=== PATIENT | male | born 1945 | race Caucasian/White ===

== ENCOUNTER 2016-12-19 19:22 | Inpatient (IN) | payer BC, MEDICARE ==
[~2016-12-19] VITALS: Ht 170.2 cm; Wt 63.5 kg
[2016-12-19] MEDS ORDERED: MORPHINE SULFATE 4 MG/ML CPJ (NOT FOR IM USE) IV STA (20:14)
[2016-12-19] MEDS ORDERED: ONDANSETRON HCL 4MG/2ML VIAL IV STA (20:14)
[2016-12-19 20:41] LABS: CHLORIDE 108 mEq/L (98-107)
[2016-12-19 20:43] LABS: BASOPHILS % 0.4 % (0.0-2.0); EOSINOPHILS % 2.6 % (0.0-5.0); HEMATOCRIT. 46.6 % (42.0-52.0); HEMOGLOBIN. 15.9 g/dL (14.0-18.0); LYMPHOCYTES % 18.4 % (20.0-50.0); MEAN CORPUSCULAR HEMOGLOBIN 31.7 pg (28.0-32.0); MEAN CORPUSCULAR VOLUME 92.8 fL (80.0-94.0); MEAN PLATELET VOLUME 9.8 fl (7.4-10.4); MONOCYTES % 9.8 % (2.0-8.0); NEUTROPHILS % 68.8 % (40.0-76.0); PLATELET 232 x1000/uL (130-400); RED BLOOD CELL COUNT 5.02 mill/uL (4.7-6.1); RED CELL DISTRIBUTION WIDTH 14.2 % (11.6-14.6)
[2016-12-19 20:45] LABS: PARTIAL THROMBOPLASTIN TIME 28.1 sec (23.4-31.0); PROTHROMBIN TIME 10.8 sec (9.4-11.6)
[2016-12-19 20:46] LABS: CARBON DIOXIDE 24 mEq/L (21-32)
[2016-12-19] MEDS ORDERED: SODIUM CHLORIDE 0.9% 1,000 ML IV ONE (20:47)
[2016-12-19] MEDS ORDERED: HYDROMORPHONE HCL/PF 2MG/ML CPJ IV ONE (22:15)
[2016-12-19] MEDS ORDERED: GUAIFENESIN 200MG/10ML SUGAR FREE UDC PO PRN (23:00)
[2016-12-19] MEDS ORDERED: DIPHENHYDRAMINE 50MG/ML VIAL IV PRN (23:00)
[2016-12-19] MEDS ORDERED: IPRATROPIUM/ALBUTEROL 0.5-3(2.5)MG/3ML NEB INH PRN (23:00)
[2016-12-19] MEDS ORDERED: LORAZEPAM 2MG/ML CPJ IV PRN (23:00)
[2016-12-19] MEDS ORDERED: ZOLPIDEM TARTRATE 5MG TABLET PO PRN (23:00)
[2016-12-19] MEDS ORDERED: NA PHOS,M-B/NA PHOS,DI-BA ENEMA 118ML PR PRN (23:00)
[2016-12-19] MEDS ORDERED: DOCUSATE SODIUM 100MG CAPSULE PO PRN (23:00)
[2016-12-19] MEDS ORDERED: MAGNESIUM/ALUMINUM HYDROXIDE/SIMETHICONE 30ML UDC PO PRN (23:00)
[2016-12-19] MEDS ORDERED: ACETAMINOPHEN 325MG TABLET PO PRN (23:00)
[2016-12-19] MEDS ORDERED: CLONIDINE 0.1MG TABLET PO PRN (23:00)
[2016-12-19] MEDS ORDERED: ONDANSETRON HCL 4MG/2ML VIAL IV PRN (23:00)
[2016-12-20 00:30] VITALS: BP 163/66
[2016-12-20] MEDS: HYDROMORPHONE HCL/PF 2MG/ML CPJ IV PRN ×5 (00:54→23:18)
[2016-12-20] MEDS: DEXT 5%/0.45% NACL 1000ML 1,000 ML IV SCH ×2 (01:12→12:05)
[2016-12-20 04:00] VITALS: BP 121/62
[2016-12-20 08:00] VITALS: BP 113/54
[2016-12-20] MEDS: ENOXAPARIN 40MG/0.4ML SYR SUBCUT SCH (08:50)
[2016-12-20] MEDS: METOPROLOL TARTRATE 25MG TABLET PO SCH ×2 (08:50→23:16)
[2016-12-20] MEDS: FAMOTIDINE 20MG/2ML VIAL IV SCH ×2 (08:50→23:14)
[2016-12-20 08:59] LABS: *AMPHETAMINES SCREEN URINE NEGATIVE (NEGATIVE); *BARBITURATES SCREEN URINE NEGATIVE (NEGATIVE); *BENZODIAZEPINES SCREEN URINE NEGATIVE (NEGATIVE); *COCAINE SCREEN URINE NEGATIVE (NEGATIVE); CANNABINOID URINE SCREEN NEGATIVE (NEGATIVE); METHADONE URINE SCREEN NEGATIVE (NEGATIVE); OPIATES URINE SCREEN PRESUMTIVE POSITIVE (NEGATIVE); PHENCYCLIDINE URINE SCREEN NEGATIVE (NEGATIVE)
[2016-12-20 12:00] VITALS: BP 122/58
[2016-12-20 20:00] VITALS: BP 128/72
[2016-12-21] VITALS: BP 136/56
[2016-12-21] MEDS: DEXT 5%/0.45% NACL 1000ML 1,000 ML IV SCH (01:43)
[2016-12-21 04:00] VITALS: BP 136/56
[2016-12-21] MEDS: HYDROMORPHONE HCL/PF 2MG/ML CPJ IV PRN ×4 (07:22→22:15)
[2016-12-21 08:00] VITALS: BP 140/72
[2016-12-21] MEDS: METOPROLOL TARTRATE 25MG TABLET PO SCH ×3 (08:38→22:07)
[2016-12-21] MEDS: ENOXAPARIN 40MG/0.4ML SYR SUBCUT SCH (08:55)
[2016-12-21] MEDS: FAMOTIDINE 20MG/2ML VIAL IV SCH ×2 (09:02→22:06)
[2016-12-21] MEDS ORDERED: VANCOMYCIN HCL 500 MG/VIAL ONE ×2 (11:43→14:07)
[2016-12-21] MEDS ORDERED: BACITRACIN ZINC 15GM TUBE TOP ONE (11:43)
[2016-12-21 12:00] VITALS: BP 135/63
[2016-12-21] MEDS ORDERED: MIDAZOLAM HCL 2 MG/2 ML VIAL ONE (13:32)
[2016-12-21] MEDS ORDERED: FENTANYL CITRATE/PF 50MCG/ML 2ML VIAL ONE (13:34)
[2016-12-21] MEDS ORDERED: PROPOFOL 200MG/20ML VIAL IV ONE (13:35)
[2016-12-21] MEDS ORDERED: LIDOCAINE HCL 1% 20ML VIAL (Pyxis) INJ ONE (13:35)
[2016-12-21] MEDS ORDERED: ROCURONIUM BROMIDE 10MG/ML VIAL 5ML IV ONE (13:36)
[2016-12-21] MEDS ORDERED: CEFAZOLIN SODIUM 1000MG/VIAL ONE (13:52)
[2016-12-21] MEDS ORDERED: SODIUM CHLORIDE 0.9% 1,000 ML IV SCH (14:04)
[2016-12-21] MEDS ORDERED: HYDROMORPHONE HCL/PF 2MG/ML CPJ IV PRN (14:15)
[2016-12-21] MEDS ORDERED: ONDANSETRON HCL 4MG/2ML VIAL IV PRN ×2 (14:15→14:45)
[2016-12-21] MEDS ORDERED: ONDANSETRON HCL 4MG/2ML VIAL ONE (14:23)
[2016-12-21] MEDS ORDERED: GLYCOPYRROLATE 0.2 MG/ML 2ML VIAL ONE (14:24)
[2016-12-21] MEDS ORDERED: NEOSTIGMINE METHYLSULFATE 1MG/ML 10 ML VIAL ONE (14:24)
[2016-12-21] MEDS ORDERED: HYDROCODONE/ACETAMINOPHEN 5/325MG TABLET PO PRN (14:45)
[2016-12-21] MEDS ORDERED: ENOXAPARIN 40MG/0.4ML SYR SUBCUT NR (15:30)
[2016-12-21 16:00] VITALS: BP 139/47
[2016-12-21 19:24] VITALS: BP 125/48
[2016-12-21] MEDS: CEFAZOLIN 1000MG PREMIX 50 ML IV SCH (22:06)
[2016-12-22] VITALS: BP 127/58
[2016-12-22] MEDS: HYDROMORPHONE HCL/PF 2MG/ML CPJ IV PRN ×2 (01:55→10:54)
[2016-12-22 04:00] VITALS: BP 120/60
[2016-12-22] MEDS: CEFAZOLIN 1000MG PREMIX 50 ML IV SCH ×3 (06:11→22:09)
[2016-12-22 08:00] VITALS: BP 116/57
[2016-12-22] MEDS: DEXT 5%/0.45% NACL 1000ML 1,000 ML IV SCH ×3 (08:42→20:25)
[2016-12-22] MEDS: METOPROLOL TARTRATE 25MG TABLET PO SCH ×2 (08:44→20:26)
[2016-12-22] MEDS: FAMOTIDINE 20MG/2ML VIAL IV SCH ×2 (08:45→20:25)
[2016-12-22] MEDS: ENOXAPARIN 40MG/0.4ML SYR SUBCUT SCH (08:47)
[2016-12-22 12:00] VITALS: BP 130/60
[2016-12-22] MEDS: HYDROCODONE/ACETAMINOPHEN 10/325MG TABLET PO PRN ×2 (13:05→17:22)
[2016-12-22 16:08] VITALS: BP 109/48
[2016-12-22 16:28] LABS: BASOPHILS % 0.3 % (0.0-2.0); EOSINOPHILS % 2.1 % (0.0-5.0); HEMATOCRIT. 34.5 % (42.0-52.0); HEMOGLOBIN. 11.8 g/dL (14.0-18.0); LYMPHOCYTES % 18.2 % (20.0-50.0); MEAN CORPUSCULAR HEMOGLOBIN 31.6 pg (28.0-32.0); MEAN CORPUSCULAR VOLUME 92.7 fL (80.0-94.0); MEAN PLATELET VOLUME 9.5 fl (7.4-10.4); MONOCYTES % 13.9 % (2.0-8.0); NEUTROPHILS % 65.5 % (40.0-76.0); PLATELET 156 x1000/uL (130-400); RED BLOOD CELL COUNT 3.73 mill/uL (4.7-6.1); RED CELL DISTRIBUTION WIDTH 13.7 % (11.6-14.6)
[2016-12-22 16:38] LABS: CHLORIDE 104 mEq/L (98-107)
[2016-12-22 16:45] LABS: CARBON DIOXIDE 24 mEq/L (21-32)
[2016-12-22] MEDS: FERROUS SULFATE 300MG/5ML UDC PO SCH (17:21)
[2016-12-22] MEDS ORDERED: POTASSIUM CHLORIDE 20MEQ/PACKET PO NR (18:45)
[2016-12-22 20:00] VITALS: BP 126/51
[2016-12-22] MEDS ORDERED: KCL 20MEQ/100ML PREMIX 100 ML IV NR (20:00)
[2016-12-22] MEDS ORDERED: POTASSIUM CHLORIDE 20MEQ TABLET SR PO NR (21:45)
[2016-12-23] VITALS: BP 139/58
[2016-12-23 04:00] VITALS: BP 132/79
[2016-12-23] MEDS: CEFAZOLIN 1000MG PREMIX 50 ML IV SCH ×2 (06:05→14:52)
[2016-12-23 08:00] VITALS: BP 141/60
[2016-12-23] MEDS: METOPROLOL TARTRATE 25MG TABLET PO SCH ×2 (09:00→21:51)
[2016-12-23 09:02] LABS: CARBON DIOXIDE 24 mEq/L (21-32); CHLORIDE 108 mEq/L (98-107)
[2016-12-23] MEDS: FAMOTIDINE 20MG/2ML VIAL IV SCH ×2 (09:12→21:52)
[2016-12-23] MEDS: ENOXAPARIN 40MG/0.4ML SYR SUBCUT SCH (09:13)
[2016-12-23] MEDS: FERROUS SULFATE 300MG/5ML UDC PO SCH ×3 (09:17→17:42)
[2016-12-23] MEDS: HYDROMORPHONE HCL/PF 2MG/ML CPJ IV PRN ×3 (09:17→21:53)
[2016-12-23] MEDS: DEXT 5%/0.45% NACL 1000ML 1,000 ML IV SCH ×2 (09:30→19:44)
[2016-12-23 12:00] VITALS: BP 139/65
[2016-12-23 16:00] VITALS: BP 149/92
[2016-12-23 20:00] VITALS: BP 145/55
[2016-12-24] VITALS: BP 119/48
[2016-12-24] MEDS: CEFAZOLIN 1000MG PREMIX 50 ML IV SCH
[2016-12-24 04:00] VITALS: BP 131/79
[2016-12-24] MEDS: DEXT 5%/0.45% NACL 1000ML 1,000 ML IV SCH ×2 (05:00→15:10)
[2016-12-24 06:43] LABS: HEMATOCRIT 31.6 % (42.0-52.0); PLATELET 175 x1000/uL (130-400); RED BLOOD CELL COUNT 3.44 mill/uL (4.7-6.1); RED CELL DISTRIBUTION WIDTH 13.9 % (11.6-14.6)
[2016-12-24 08:00] VITALS: BP 132/64
[2016-12-24] MEDS: ENOXAPARIN 40MG/0.4ML SYR SUBCUT SCH (09:04)
[2016-12-24] MEDS: FERROUS SULFATE 300MG/5ML UDC PO SCH ×3 (09:05→16:55)
[2016-12-24] MEDS: FAMOTIDINE 20MG/2ML VIAL IV SCH (09:06)
[2016-12-24] MEDS: METOPROLOL TARTRATE 25MG TABLET PO SCH ×2 (09:06→22:19)
[2016-12-24] MEDS: HYDROCODONE/ACETAMINOPHEN 10/325MG TABLET PO PRN ×2 (09:40→22:19)
[2016-12-24 12:00] VITALS: BP 134/59
[2016-12-24 16:00] VITALS: BP 135/63
[2016-12-24 20:00] VITALS: BP 139/65
[2016-12-25] VITALS: BP 133/58
[2016-12-25] MEDS: DEXT 5%/0.45% NACL 1000ML 1,000 ML IV SCH ×3 (01:00→21:00)
[2016-12-25 04:00] VITALS: BP 132/63
[2016-12-25 08:00] VITALS: BP 136/59
[2016-12-25] MEDS: FERROUS SULFATE 300MG/5ML UDC PO SCH ×3 (09:50→17:22)
[2016-12-25] MEDS: METOPROLOL TARTRATE 25MG TABLET PO SCH ×2 (09:51→21:20)
[2016-12-25] MEDS: FAMOTIDINE 20MG TABLET PO SCH ×2 (09:51→21:19)
[2016-12-25] MEDS: ENOXAPARIN 40MG/0.4ML SYR SUBCUT SCH (09:51)
[2016-12-25 12:00] VITALS: BP 129/55
[2016-12-25 16:00] VITALS: BP 124/65
[2016-12-25] MEDS: HYDROCODONE/ACETAMINOPHEN 10/325MG TABLET PO PRN ×2 (16:18→21:20)
[2016-12-25 20:00] VITALS: BP 162/60
[2016-12-26] VITALS: BP 140/62
[2016-12-26 04:00] VITALS: BP_SYST 128; BP_SYST 146; BP_DIAS 56; BP_DIAS 67
[2016-12-26] MEDS: DEXT 5%/0.45% NACL 1000ML 1,000 ML IV SCH ×2 (06:12→17:00)
[2016-12-26 08:00] VITALS: BP 139/64
[2016-12-26] MEDS: FAMOTIDINE 20MG TABLET PO SCH ×2 (09:54→21:24)
[2016-12-26] MEDS: METOPROLOL TARTRATE 25MG TABLET PO SCH ×2 (09:54→21:24)
[2016-12-26] MEDS: FERROUS SULFATE 300MG/5ML UDC PO SCH ×3 (09:54→17:06)
[2016-12-26] MEDS: ENOXAPARIN 40MG/0.4ML SYR SUBCUT SCH (09:54)
[2016-12-26 12:00] VITALS: BP 129/66
[2016-12-26] MEDS: HYDROMORPHONE HCL/PF 2MG/ML CPJ IV PRN (13:36)
[2016-12-26] MEDS: HYDROCODONE/ACETAMINOPHEN 10/325MG TABLET PO PRN ×2 (13:47→21:25)
[2016-12-26 16:00] VITALS: BP 120/48
[2016-12-26 20:00] VITALS: BP 125/51
[2016-12-27] VITALS: BP 130/68
[2016-12-27] MEDS: DEXT 5%/0.45% NACL 1000ML 1,000 ML IV SCH (03:00)
[2016-12-27] MEDS: HYDROCODONE/ACETAMINOPHEN 10/325MG TABLET PO PRN ×2 (03:57→11:39)
[2016-12-27 04:00] VITALS: BP 128/54
[2016-12-27 08:00] VITALS: BP 122/40
[2016-12-27] MEDS: FERROUS SULFATE 300MG/5ML UDC PO SCH (09:36)
[2016-12-27] MEDS: METOPROLOL TARTRATE 25MG TABLET PO SCH (09:36)
[2016-12-27] MEDS: FAMOTIDINE 20MG TABLET PO SCH (09:36)
[2016-12-27] MEDS: ENOXAPARIN 40MG/0.4ML SYR SUBCUT SCH (09:37)
[2016-12-27 11:00] VITALS: BP 140/55
[2016-12-27 12:00] VITALS: BP 150/63
== END 2016-12-27 13:00 | disposition home health service (06) | DRG 482 ==
LOC: ER 20:37 → 6EST 22:39 → ENRESERV 23:03 → SUPCPDRO 23:10
PROVIDERS: ADMIT Internal Medicine; ATTEND Internal Medicine
PROC: 0QS606Z Reposition Right Upper Femur with Intramedullary Internal Fixation Device, Open Approach (ICD-10-PCS; principal; 2016-12-21 12:00)
DX: S72.21XA Displaced subtrochanteric fracture of right femur, initial encounter for closed fracture (principal); I10 Essential (primary) hypertension; W01.0XXA Fall on same level from slipping, tripping and stumbling without subsequent striking against object, initial encounter; E78.00 Pure hypercholesterolemia, unspecified; G14 Postpolio syndrome; F17.210 Nicotine dependence, cigarettes, uncomplicated; Z96.649 Presence of unspecified artificial hip joint; Z79.899 Other long term (current) drug therapy; Z86.12 Personal history of poliomyelitis; Y93.89 Activity, other specified; Y92.89 Other specified places as the place of occurrence of the external cause; Y99.8 Other external cause status
CPT/HCPCS: 36415; 71010; 73502; 73503; 80053; 80305; 82962; 83036; 84484; 85025; 85027; 85610; 85730; 86850; 86900; 93005; 93970; 96361; 96374; 96375; 97162; 97530; 99285; C1713; J0690; J1170; J1650; J2250; J2270; J2405; J2704; J2710; J3010; J3370; J3480; J3490; J7030